=== PATIENT | male | born 1980 | race Caucasian/White ===

== ENCOUNTER 2025-04-23 09:09 | Outpatient (CLI) | payer BC, SELFPAY ==
[2025-04-23 10:28] LABS: Alanine Aminotransferase 40 U/L (6-50); Aspartate Amino Transferase 47 U/L (17-59)
--- OUTSIDE RECORDS SUMMARY | 2025-04-23 10:29 | XMS_ITS | Clinical Summary ---
Author Organization [facility] Address [address] [place] [id number] Care Team Providers Care Compensation Business Partner Name Role Phone Unavailable Primary Care Provider Unavailabl e Immunizations Immunization Administration Dates Next Due INFLUENZA VACCINE QUADRIVALENT 6 MOS UP PF IM ,03/31/2021 Social History Tobacco Use Types Packs/Day Years Used Date Smoking Tobacco: Never Assessed Sex and Gender Information Value Date Recorded Sex Assigned at Not on file Legal Sex Male 3:30 PM CDT Gender Identity Not on file Sexual Orientation Not on file Plan of Treatment Health Maintenance Due Date Last Done Comments HEPATITIS B VACCINES (1 of 3 - 19+ 3-dose series) 1999 HPV VACCINES (1 - 3-dose SCD M series) 2007 INFLUENZA VACCINE (#1) 2025 3, 03/31/2021, 04/07/2020, Additional history exists DTAP/TDAP/TD VACCINES (2 - T d or Tdap) 01/05/2028 01/04/2018 Insurance [facility]
== END 2025-04-23 09:10 | disposition home or self-care (01) ==
LOC: ANHLAB 09:18
PROVIDERS: PCP Physician Assistant; Visit Provider Podiatrist Foot & Ankle Surgery
DX: B35.1 Tinea unguium (principal)
CPT/HCPCS: 36415; 84450; 84460